=== PATIENT | male | born 1955 | race Caucasian/White ===

== ENCOUNTER 2025-03-11 15:09 | Emergency (ER) | payer MEDICARE, OTHER ==
[~2025-03-11] VITALS: Ht 190.5 cm; Wt 97.0 kg
[2025-03-11 15:28] VITALS: BP 180/93; PULSE 91; RESP 15; O2SAT 97
--- NOTE | 2025-03-11 15:33 | Physician Documentation ---
History of Present Illness ~ Stated Complaint: POSS RABIES EXPOSURE Time Seen by MD: 17:42 [facility] 69 year old male presents after being scratched or bit by a bat about 24 hours ago. He reports that he went to take the cover off his boat when a bat flew out. He has scratches to the dorsum of his left hand. Believes he is up-to-date on tetanus. Medication Reconciliation Allergies: Coded Allergies: No Known Allergies (Unverified , 03/11/25) Review of Systems ROS As stated above in the HPI, otherwise all systems are reviewed and negative. Physical Exam Physical Exam General: Alert, no apparent distress. HEENT: PERRL, EOMI, no injection, moist mucous membranes. Neck: Full range of motion. Respiratory: Lungs clear, no respiratory distress. Chest: No accessory muscle use. Cardiovascular: Regular rate and rhythm, no murmurs. Gastrointestinal: Soft, nontender, nondistended. Bowels sounds present. Extremities: Normal range of motion, no deformity. Neurologic: Oriented x4. Psychiatric: Normal mood and affect. Skin: Normal color, warm and dry. No edema, no ecchymosis. Multiple superficial scratches dorsum left hand. None appear infected. Progress Results/Orders Results/Orders Vital Signs 03/11/25 15:28 Temp 96.3 Pulse 91 Resp 15 B/P (MAP) 180/93 Pulse Ox 97 Medical Decision Making Additional information obtaine: N/A Findings No previous visits to this facility. Differential Dx:Considerations: Include: Abrasion, Allergic reaction, Anaphylaxis, Cellulitis, Contusion, Fracture, Hematoma, Insect envenomation, Laceration, Neurovascular injury, Punture wound, Retained foreign body, Urticaria Additional Comment Medical Decision making: Potential rabies exposure from bat contact, high risk This 69-year-old male weighing 215 pounds (98 kg) presents 24 hours after bat exposure with scabbed open areas on the dorsum of his hand. This presentation constitutes a definite rabies exposure requiring immediate postexposure prophylaxis. Risk Stratification: Bat exposures represent the highest-risk scenario for rabies transmission in the [place], with bats implicated in 81.6% of domestically acquired human rabies cases since 1999. The presence of open wounds with scabbing indicates direct contact occurred, and any penetration of skin by a bat constitutes a potential exposure regardless of wound severity. Bats can inflict subtle injuries that may go unnoticed, and bat-related rabies viruses may be more likely to result in infection after inoculation into superficial epidermal layers. The contamination of open wounds with saliva or other potentially infectious material from a rabid animal constitutes a high-risk nonbite exposure. [1][3] Timing Considerations: The patient presents at 24 hours post-exposure, which is within the optimal window for initiating PEP. Rabies postexposure prophylaxis is a medical urgency (not an emergency) and should ideally be initiated within 24- 48 hours of exposure. Importantly, [2][4] it is never too late to administer PEP if clinical rabies has not yet developed, as incubation periods of more than one year have been reported in humans. [1][4] Immediate Wound Management: The wounds on the dorsum of the hand require prompt and thorough management. Wounds should be immediately and copiously irrigated, preferably with a virucidal agent such as povidone-iodine solution or soap and water. Thorough wound cleansing alone can markedly reduce the likelihood of rabies transmission, with animal studies demonstrating up to 50% increased survival with proper wound washing. Care should be taken not to damage skin or tissues during irrigation. [1][4-5] Primary wound closure should be delayed for 4 days to minimize infection risk and allow for adequate wound assessment. This approach reduces the risk of trapping virus in deeper tissues and allows for continued drainage and observation. [4] Additional wound care considerations include assessment for tetanus prophylaxis status and consideration of prophylactic antibiotics for secondary bacterial infection prevention, though these are not specifically indicated for rabies prevention. [1] Rabies Postexposure Prophylaxis (PEP): Given the high-risk nature of this exposure (bat contact with open wounds), immediate initiation of rabies PEP is indicated regardless of whether the bat is available for testing. [1][6] The PEP regimen for this previously unvaccinated patient consists of: Human Rabies Immune Globulin (HRIG): Dose calculated at 20 IU/kg body weight = 1,960 IU (approximately 13 mL at standard concentration of 150 IU/mL). As much of the dose as anatomically feasible should be thoroughly infiltrated into and around the wounds on the dorsum of the hand. Any remaining volume should be administered intramuscularly at a site distant from vaccine administration. HRIG should never be administered in the same syringe or at the same anatomical site as the rabies vaccine. [1] Rabies Vaccine Series: Administer in the deltoid area (the only acceptable site for adults) on day 0 (today), followed by additional doses on days 3, 7, and 14. The vaccine should never be administered in the gluteal area. [1] Timing of HRIG Administration: Since the patient presents at 24 hours post- exposure, HRIG should be administered immediately on day 0 along with the first rabies vaccine dose. If HRIG were not immediately available, it could still be given up to and including day 7 after the first vaccine dose, as beyond day 7 vaccine-induced antibody response is presumed to have begun. [1] Rationale for Treatment: The decision to administer PEP is based on the high- risk nature of bat exposures and the presence of open wounds. Any direct contact between a human and a bat should be evaluated for exposure, and if the person cannot be reasonably certain that a bite, scratch, or mucous membrane exposure did not occur, postexposure prophylaxis is necessary. The presence of scabbed open areas on the dorsum of the hand confirms that direct contact occurred and that potentially infectious material could have been introduced into broken skin. [1] Bat Testing: If the bat is available, it should be safely collected and submitted for rabies diagnostic testing to the [facility] public health laboratory. Approximately 94% of submitted bats test negative for rabies, and timely diagnostic assessment can rule out the need for completing the full PEP series if negative. However, [1] PEP should not be delayed pending test results and should be initiated immediately given the 24-hour delay since exposure. [1-2] Public Health Notification: Local and state public health authorities have been notified to facilitate rabies risk assessment, coordinate PEP administration, and potentially investigate the bat exposure circumstances. This notification is essential for proper case management and epidemiologic surveillance. [2][4] Monitoring and Follow-Up: Close monitoring of wound healing and signs of secondary bacterial infection Assessment for adverse reactions to rabies vaccine or HRIG at each vaccine administration visit Completion of the full 4-dose rabies vaccine series on days 0, 3, 7, and 14 If bat testing becomes available and is negative, PEP can be discontinued; if positive, the full series must be completed Patient education regarding the importance of completing the full vaccine series and returning for scheduled doses Departure Disposition: 01 HOME / SELF CARE / HOMELESS Impression: Primary Impression: Bat bite wound Additional Impression: Rabies, need for prophylactic vaccination against Condition: Improved Discharge Instructions: Animal Bite, Adult, VIS, Rabies - [facility] (09/07/2021) Additional Instructions: You must return on day three, seven and 14 to receive additional vaccinations for rabies. Failure to do so may result in development of rabies infection and . Referrals: NO PRIMARY CARE PROVIDER (PCP) Education Educated: Patient Educated regarding: diagnosis, treatment, prognosis, need for follow up Signature Scribe Signature: x Attestation: Date: Mar 11, 2025 Time: 17:49 This note accurately reflects clinical decisions, work performed by myself, DO BRINDA Hopson HEIDI L NP Mar 11, 2025 15:33 KIRBY BRASWELL DO Mar 11, 2025 17:50
[2025-03-11] MEDS: rabies immune globulin/PF 150 unit/ml inj IMVAC STA (18:11)
[2025-03-11 19:43] VITALS: TEMP 96.3
== END 2025-03-11 19:44 | disposition home or self-care (01) ==
LOC: ER 15:11
DX: S60.512A Abrasion of left hand, initial encounter (principal); W55.81XA Bitten by other mammals, initial encounter; Y93.89 Activity, other specified; Y92.89 Other specified places as the place of occurrence of the external cause; Y99.8 Other external cause status
CPT/HCPCS: 90375; 90472; 90675; 99284; G0008; 90376; 90471

== ENCOUNTER 2025-03-14 11:30 | Emergency (ER) | payer MEDICARE, OTHER ==
[~2025-03-14] VITALS: Ht 188 cm; Wt 98.5 kg
[2025-03-14 11:39] VITALS: TEMP 98.6
--- NOTE | 2025-03-14 12:57 | Physician Documentation ---
History of Present Illness ~ Chief Complaint: Wound Re-Check Stated Complaint: RABIES VACCINE Time Seen by MD: 12:28 HPI Patient with a history of bat bite to the left hand that occurred this past . He was given rabies immunuloglobulin and his first rabies vaccine at that time and returns today for his second. He denies issues otherwise and the bat bites/scratches to left hand are healing well. Tetanus within 5 years?: Yes Medication Reconciliation Allergies: Coded Allergies: No Known Allergies (Unverified , 03/11/25) Review of Systems ROS As stated above in the HPI, otherwise all systems are reviewed and negative. Physical Exam Vital Signs: Temperature: 98.6, Source: Temporal, Heart Rate: 82, Respiratory Rate: 18, BP: 148/76, Pulse Oximetry: 97, Weight: 98.500 Oxygen Flow Rate: 0 Physical Exam General: Alert, no apparent distress. Neck: Full range of motion. Respiratory: Lungs clear, no respiratory distress. Chest: No accessory muscle use. Cardiovascular: Regular rate and rhythm, no murmurs. Gastrointestinal: Soft, nontender, nondistended. Bowels sounds present. Extremities: Normal range of motion, no deformity. Neurologic: Oriented x4. Psychiatric: Normal mood and affect. Skin: Normal color, warm and dry. No edema, no ecchymosis. Healing superficial abrasions and scratches dorsum left hand. Progress Results/Orders Results/Orders Completed Orders - MADAN PARRY NP Rabies Vaccine (Pcec)/Pf (Rabavert Rabie (03/14/25 13:00) Medications Received in ER Medications (Trade) Dose Ordered Sig/Leslie Route PRN Reason Start Time Stop Time Status Last Admin Dose Admin (Rabavert Rabies Vaccine kit) 2.5 unit ONCE ONCE IMVAC 03/14/25 13:00 03/14/25 13:01 DC 03/14/25 13:38 2.5 UNIT Vital Signs 03/14/25 11:39 Temp 98.6 Pulse 82 Resp 18 B/P (MAP) 148/76 Pulse Ox 97 O2 Flow Rate 0 Medical Decision Making Additional information obtaine: old records Findings Patient seen here this past for initial eval of "bat bite" to left hand. Differential Dx:Considerations: Include: Abscess, Cellulitis, Dressing change, Healing wound Departure Time of Disposition: 12:55 Disposition: 01 HOME / SELF CARE / HOMELESS Impression: Primary Impression: Bat bite wound Additional Impression: Rabies, need for prophylactic vaccination against Condition: Stable Discharge Instructions: Rabies Vaccine suspension for injection, Wound Care, Adult Additional Instructions: 2nd rabies vaccine given today. Follow the schedule provided to you this past and plan to complete the series. Return for those planned vaccines and with any other concerns. Referrals: NO PRIMARY CARE PROVIDER (PCP) Education Educated: Patient Educated regarding: diagnosis, treatment, prognosis, need for follow up Signature Scribe Signature: x Attestation: The note accurately reflects work and decisions made by me.Madan Obrien NP 03/14/25 13:58 MADAN PARRY NP Mar 14, 2025 12:57
[2025-03-14 13:55] VITALS: BP 147/109; PULSE 73; RESP 18; O2SAT 98
== END 2025-03-14 13:58 | disposition home or self-care (01) ==
LOC: ER 11:30
DX: S60.512D Abrasion of left hand, subsequent encounter (principal); W55.81XD Bitten by other mammals, subsequent encounter
CPT/HCPCS: 90675; 99282; G0008; 90471

== ENCOUNTER 2025-03-18 11:45 | Emergency (ER) | payer MEDICARE, OTHER ==
[~2025-03-18] VITALS: Ht 188 cm; Wt 97.5 kg
[2025-03-18 11:49] VITALS: BP 149/75; PULSE 80; RESP 16; TEMP 97.9; O2SAT 99
--- NOTE | 2025-03-18 11:59 | Physician Documentation ---
History of Present Illness Chief Complaint: See Chief Complaint Stated Complaint: RABIES SHOT HPI Patient is a very pleasant 69-year-old male that presents to the emergency department for injection of his 3rd rabies series. Patient denies any symptoms at this time patient reports feeling well. Medication Reconciliation Allergies: Coded Allergies: No Known Allergies (Unverified , 03/18/25) Review of Systems ROS As stated above in the HPI, otherwise all systems are reviewed and negative. Physical Exam Vital Signs: Temperature: 97.9, Source: Temporal, Heart Rate: 80, Respiratory Rate: 16, BP: 149/75, Pulse Oximetry: 99, Weight: 97.500 Oxygen Flow Rate: 0 Physical Exam VITALS: Reviewed and as above. GENERAL: Alert, no apparent distress. HEENT: Normocephalic, atraumatic, PERRL, EOMI, dry mucosa, no erythema RESPIRATORY: Lungs clear, normal breath sounds, no respiratory distress. CHEST: No accessory muscle use, no retractions CV: Regular rate, rhythm, no edema, no murmur, No: JVD GI: Soft, non-tender, bowels sounds present, no rebound, guarding, or rigidity BACK: No CVA tenderness, or swelling MUSCULOSKELETAL No deformities, no edema SKIN: Warm and dry, no rash NEURO: Oriented x4, No motor or sensory deficit PSYCH: Normal mood and affect, no agitation Progress Results/Orders Results/Orders Vital Signs 03/18/25 11:49 Temp 97.9 Pulse 80 Resp 16 B/P (MAP) 149/75 Pulse Ox 99 O2 Flow Rate 0 Medical Decision Making Additional information obtaine: other Findings Presented for 3rd shot in the rabies series. Patient denies any symptoms from previous injections patient reports feeling well at this time. Differential Dx:Considerations: Other, N/A Departure Disposition: HOME / SELF CARE / HOMELESS Impression: Primary Impression: Rabies, need for prophylactic vaccination against Condition: Stable Discharge Instructions: Rabies Vaccine suspension for injection Additional Instructions: Presented for 3rd shot in the rabies series. Patient denies any symptoms from previous injections patient reports feeling well at this time. Patient will follow up with the primary care provider. Patient will return to the emergency department with any worsening of his current symptoms or any additional concerning symptoms that we discussed here today. Patient will return here to the emergency department or to his primary care provider's office for subsequent injections in the series. Referrals: NO PRIMARY CARE PROVIDER (PCP) Education Educated: Patient Educated regarding: diagnosis, treatment, need for follow up Signature Scribe Signature: A Attestation: Scribed for Emergency,Department by CT Camacho . 03/18/25 12:21 LIZBETH TIMMONS Mar 18, 2025 11:59
== END 2025-03-18 12:33 | disposition home or self-care (01) ==
LOC: ER 11:46
DX: Z23 Encounter for immunization (principal)
CPT/HCPCS: 90675; 99282; G0008; 90471

== ENCOUNTER 2025-03-25 12:42 | Emergency (ER) | payer MEDICARE, OTHER ==
[~2025-03-25] VITALS: Ht 188 cm; Wt 97.3 kg
[2025-03-25 12:45] VITALS: BP 126/79; PULSE 83; RESP 18; O2SAT 98
--- NOTE | 2025-03-25 14:21 | Physician Documentation ---
History of Present Illness ~ General Chief Complaint: General Stated Complaint: RABIES VACCINE Time Seen by MD: 13:39 Primary Medical Doctor: [facility]- Dr. López History of Present Illness Initial Comments The patient is a very pleasant 69-year-old male that presents to the emergency department for the 4th injection of his rabies series. Patient reports that he has not complications with his previous injections. Medication Reconciliation Allergies: Coded Allergies: No Known Allergies (Unverified , 03/25/25) Review of Systems ROS As stated above in the HPI, otherwise all systems are reviewed and negative. Physical Exam Physical Exam Vital Signs: Temperature: 97.9, Source: Oral, Heart Rate: 83, Respiratory Rate: 18, BP: 126/79, Pulse Oximetry: 98, Weight: 97.300 Oxygen Flow Rate: 0 Physical Exam VITALS: Reviewed and as above. GENERAL: Alert, no apparent distress. SKIN: Warm and dry, no rash NEURO: Oriented x4, No motor or sensory deficit PSYCH: Normal mood and affect, no agitation Progress Results/Orders Results/Orders Orders - ANA DE GUZMANP Rabies Vaccine (Pcec)/Pf (Rabavert Rabie (03/25/25 14:20) Vital Signs 03/25/25 12:45 Temp 97.9 Pulse 83 Resp 18 B/P (MAP) 126/79 Pulse Ox 98 O2 Flow Rate 0 Medical Decision Making Additional information obtaine: other Findings The patient is a very pleasant 69-year-old male that presents to the emergency department for the 4th injection of his rabies series. Patient reports that he has not complications with his previous injections. Differential Diagnosis See MDM. Departure Disposition: HOME / SELF CARE / HOMELESS Impression: Primary Impression: General medical exam Additional Impressions: Bat bite wound Rabies, need for prophylactic vaccination against Condition: Stable Additional Instructions: The patient is a very pleasant 69-year-old male that presents to the emergency department for the 4th injection of his rabies series. Patient reports that he has not complications with his previous injections. He will follow up with his primary care provider. Patient will return to the emergency department with any worsening of his current symptoms or any additional concerning symptoms that we discussed here today. Referrals: NO PRIMARY CARE PROVIDER (PCP) Education Educated: Patient Educated regarding: diagnosis, treatment, need for follow up Signature Scribe Signature: A Attestation: Scribed for Ana De Guzman by CT Camacho . 03/25/25 14:20 ANA DE GUZMAN Mar 25, 2025 14:21
[2025-03-25 14:39] VITALS: TEMP 97.9
== END 2025-03-25 14:40 | disposition home or self-care (01) ==
LOC: ER 12:43
DX: T14.8XXD Other injury of unspecified body region, subsequent encounter (principal); W55.81XD Bitten by other mammals, subsequent encounter
CPT/HCPCS: 90675; 99282; G0008; 90471